=== PATIENT | male | born 1955 | race Caucasian/White ===

== ENCOUNTER 2017-06-14 09:44 | Emergency (ER) | payer SELFPAY ==
[~2017-06-14] VITALS: Ht 162.6 cm; Wt 79.5 kg
[2017-06-14 09:48] VITALS: BP 147/80; PULSE 100; TEMP 98.1
[2017-06-14 10:48] LABS: COLLECTION METHOD CLEAN CATCH
[2017-06-14 10:53] LABS: BASO % 0.7 % (0.0-2.0); EOS # 0.3 (0.0-0.7); EOS % 4.5 % (0-4.0); GRAN # 3.8 (1.4-6.5); GRAN % 69.7 % (42.2-75.2); HEMATOCRIT 45.6 % (42.0-52.0); LYMPH % 17.3 % (20.0-51.0); MEAN CELL VOLUME 91 fl (80.0-100.0); MEAN CORPUSCULAR HEMOGLOBIN 32 pg (27.0-31.0); MEAN CORPUSCULAR HGB CONC 35 g/dl (33.0-37.0); MONO # 0.4 (0.1-0.6); MONO % 7.6 % (1.7-9.3); PLATELET COUNT 200 K/mm3 (130-400); RED BLOOD COUNT 5.03 M/mm3 (4.20-5.60); WHITE BLOOD COUNT 5.5 K/mm3 (4.8-10.8)
[2017-06-14 10:56] LABS: PH 6 (5-8); SQUAMOUS EPITHELIAL None Seen /hpf; URINE APPEARANCE Clear; URINE BACTERIA None Seen /hpf; URINE BILIRUBIN Negative (NEGATIVE); URINE BLOOD Negative (NEGATIVE); URINE COLOR Yellow; URINE GLUCOSE Negative (NEGATIVE); URINE KETONE Negative (NEGATIVE); URINE LEUKOCYTE ESTERASE Negative (NEGATIVE); URINE PROTEIN(semi-quant) Negative (NEGATIVE); URINE RBC 0-2 /hpf; URINE UROBILINOGEN Negative (NEGATIVE); URINE WBC 0-2 /hpf
[2017-06-14 11:07] LABS: ADJUSTED CALCIUM 9.1 mg/dL (8.4-10.2); ALANINE AMINOTRANSFERASE 35 U/L (21-72); ALBUMIN 4.4 gm/dL (3.5-5.0); ALKALINE PHOSPHATASE 81 U/L (50-136); ANION GAP 9 mmol/L (7-16); BILIRUBIN,TOTAL 0.8 mg/dL (0.0-1.0); BLOOD UREA NITROGEN 12 mg/dL (9-20); CALCIUM 9.4 mg/dL (8.4-10.2); CARBON DIOXIDE 25 mmol/L (22-30); CHLORIDE 104 mmol/L (98-107); CREATININE, serum 0.73 mg/dL (0.66-1.25); GLUCOSE 137 mg/dL (74-106); POTASSIUM 4.1 mmol/L (3.4-5.0); SODIUM 138 mmol/L (137-145); TOTAL PROTEIN 7.3 gm/dL (6.4-8.2)
[2017-06-14 11:08] LABS: C-REACTIVE PROTEIN < 0.5 mg/dL (0.0-0.9)
[2017-06-14 14:11] LABS: CHLAMYDIA/TRACH by PCR Male NOT DETECTED; Neisseria Gon by PCR Male NOT DETECTED
== END 2017-06-14 11:47 | disposition home or self-care (01) ==
LOC: COL.ER 09:44
PROVIDERS: Nurse Practitioner
DX: R19.7 Diarrhea, unspecified (principal); Z87.19 Personal history of other diseases of the digestive system; Z98.890 Other specified postprocedural states

== ENCOUNTER → 2017-06-20 | Outpatient (CLI) | payer SELFPAY ==
[2017-06-20 17:44] LABS: CHLAMYDIA/TRACH by PCR Male NOT DETECTED; Neisseria Gon by PCR Male NOT DETECTED
== END ==
LOC: COL.LAB 10:45
PROVIDERS: Nurse Practitioner
DX: R30.9 Painful micturition, unspecified (principal)

== ENCOUNTER 2017-08-05 15:16 | Emergency (ER) | payer SELFPAY ==
[~2017-08-05] VITALS: Ht 162.6 cm; Wt 79.5 kg
[2017-08-05 15:19] VITALS: BP 140/88; TEMP 97.9
[2017-08-05] MEDS ORDERED: AMOXICILLIN 50500 MG PO (16:12)
[2017-08-05 16:42] VITALS: PULSE 72
== END 2017-08-05 16:42 | disposition home or self-care (01) ==
LOC: COL.ER 15:16
DX: S46.912A Strain of unspecified muscle, fascia and tendon at shoulder and upper arm level, left arm, initial encounter (principal); H66.92 Otitis media, unspecified, left ear; Y93.H1 Activity, digging, shoveling and raking

== ENCOUNTER 2022-03-21 14:41 | Emergency (ER) | payer OTHER, MEDICARE ==
[~2022-03-21] VITALS: Ht 162.6 cm; Wt 79.5 kg
[~2022-03-21 14:41] MED LIST: AMOXICILLIN 50500 MG PO
[2022-03-21 15:07] VITALS: TEMP 98.1
[2022-03-21 16:44] VITALS: BP 150/100; PULSE 92
== END 2022-03-21 16:44 | disposition home or self-care (01) ==
LOC: COL.ER 14:41
DX: Z20.2 Contact with and (suspected) exposure to infections with a predominantly sexual mode of transmission (principal)
CPT/HCPCS: J0696

== ENCOUNTER 2022-03-26 12:37 | Emergency (ER) | payer OTHER, MEDICARE ==
[~2022-03-26] VITALS: Ht 172.7 cm; Wt 72.7 kg
[2022-03-26] MEDS ORDERED: DOXYCYCLINE 10100 MG PO (13:14)
[2022-03-26 14:02] VITALS: BP 147/74; PULSE 82; TEMP 98
== END 2022-03-26 14:04 | disposition home or self-care (01) ==
LOC: COL.ER 12:37
DX: R19.7 Diarrhea, unspecified (principal); N45.1 Epididymitis; Z28.311 Partially vaccinated for COVID-19; Z87.891 Personal history of nicotine dependence